=== PATIENT | male | born 1960 | race Caucasian/White ===

== ENCOUNTER 2025-05-16 20:16 | Emergency (ER) | payer MEDICARE, OTHER ==
[~2025-05-16] VITALS: Ht 182.9 cm; Wt 72.6 kg
[2025-05-16 20:16] VITALS: TEMP 98.3
[~2025-05-16 20:16] MED LIST: ATORVASTATIN CA40 MG PO; EFFEXOR XR75 MG PO; FENOFIBRATE160 MG PO; LANSOPRAZOLE30 MG PO; LISINOPRIL40 MG PO; METFORMIN HCL500 MG PO; NORCO 7.5-3251 EACH PO
[2025-05-16] MEDS ORDERED: SODIUM CHLORIDE 0.9% 1000ML 1,000 ML ONE (20:31)
[2025-05-16] MEDS: LIDOCAINE 1% W/EPINEPHRINE 20 ML VIAL INJ ONE (20:42)
[2025-05-16] MEDS: SODIUM CHLORIDE 0.9% 1000ML 1,000 ML IV STA (20:49)
[2025-05-16 20:51] LABS: BASOPHILS % 0.5 % (0.0-1.0); EOSINOPHILS % 0.5 % (0.0-6.0); LYMPHOCYTES % 13.9 % (18.0-39.1); MONOCYTES % 8.6 % (4.4-11.3); NEUTROPHILS % 75.9 % (38.7-80.0); RED CELL DISTRIBUTION WIDTH 13.7 % (11.7-14.4)
[2025-05-16] MEDS: TRANEXAMIC ACID 1,000 MG/10 ML ML INJ STA (20:52)
[2025-05-16 21:04] LABS: INR 0.94
[2025-05-16 21:13] LABS: EST GLOMERULAR FILTRATION RATE 19.0 ML/MIN (>=60)
[2025-05-16 21:20] VITALS: PULSE 89; RESP 17; O2SAT 100
== END 2025-05-16 21:50 | disposition home or self-care (01) ==
LOC: ER 20:22
DX: I83.891 Varicose veins of right lower extremity with other complications (principal); I10 Essential (primary) hypertension; E11.65 Type 2 diabetes mellitus with hyperglycemia; E78.5 Hyperlipidemia, unspecified; K21.9 Gastro-esophageal reflux disease without esophagitis; F41.9 Anxiety disorder, unspecified; F32.A Depression, unspecified
CPT/HCPCS: 12001; 36415; 80053; 85025; 85610; 86850; 86900; 99284; J7030